=== PATIENT | female | born 1960 | race Caucasian/White ===

== ENCOUNTER → 2020-10-02 08:29 | Outpatient (CLI) | payer OTHER, SELFPAY ==
--- NOTE | ~2020-10-02 | US_ITS ---
EXAMINATION: US thyroid DATE: 10/02/2020 08:51 INDICATION: Neck mass. TECHNIQUE: Multiple ultrasound images of the thyroid were obtained. COMPARISON: Thyroid ultrasound 11/27/2019 FINDINGS: The right thyroid lobe measures 6.6 x 4.6 x 2.9 cm. The left thyroid lobe measures 6.5 x 3.6 x 3.2 c m. The thyroid is diffusely hypoechoic with heterogeneous signal intensity. Vascularity is normal. N ormal lymph nodes are seen in the neck bilaterally. IMPRESSION: 1. Heterogeneous thyroid, likely chronic lymphocytic (Benito) thyroiditis. Reviewed, dictated and finalized at location A. [facility]
== END ==
PROVIDERS: PCP Internal Medicine; Visit Provider Internal Medicine
DX: R22.1 Localized swelling, mass and lump, neck (principal)
CPT/HCPCS: 76536

== ENCOUNTER → 2021-01-05 17:58 | Outpatient (CLI) | payer OTHER, SELFPAY ==
--- NOTE | ~2021-01-05 | XR_ITS ---
EXAMINATION: XR shoulder LT min 2V INDICATION: Left shoulder pain TECHNIQUE: Four views of the left shoulder are submitted. COMPARISON: None FINDINGS: Normal alignment. No fracture. Glenohumeral and acromioclavicular joint spaces are normal. Soft tissues are unremarkable. IMPRESSION: 1. No acute osseous abnormality. Reviewed, dictated and finalized at location A. [facility] [employer]
== END ==
PROVIDERS: Visit Provider Internal Medicine
DX: M25.512 Pain in left shoulder (principal)
CPT/HCPCS: 73030

== ENCOUNTER → 2021-05-28 00:15 | Outpatient (CLI) | payer OTHER, SELFPAY ==
[2021-05-28 16:43] LABS: SARS-CoV-2 RNA PCR Negative
== END ==
PROVIDERS: PCP Internal Medicine; Visit Provider Internal Medicine Gastroenterology
DX: Z01.812 Encounter for preprocedural laboratory examination (principal); Z20.822 Contact with and (suspected) exposure to COVID-19
CPT/HCPCS: C9803; U0003; U0005

== ENCOUNTER 2021-06-01 01:07 | Day surgery (SDC) | payer OTHER, SELFPAY ==
[2021-05-19 14:19] VITALS: BMI 23.8
--- NOTE | 2021-05-31 09:31 | WPDANESEPPF ---
Anes - Initial Pre Proc Eval Procedure: Operation Date: 06/01/21 09:30 Proposed Procedures p Esophagogastroduodenoscopy & Screening Colonoscopy - Fernando Martin MD Date/Time: 05/31/21 09:31 Surgeon: Fernando Martin MD Pre Op Diagnosis: family hx of colon ca, neoplasm, celiac disease Patient Data Age: 61 Gender: F Height: 1.57 m Weight: 59 kg Allergies Allergy/AdvReac Type Severity Reaction Status Date / Time Sulfa (Sulfonamide Allergy Unknown Unknown Verified 06/01/21 08:33 Antibiotics) Home Medications Medication Instructions Recorded Confirmed Type fluticasone propionate 50 2 spray NASAL DAILY 11/19/19 06/01/21 History mcg/actuation nasal spray,suspension venlafaxine 75 mg capsule,extended 75 mg PO DAILY #90 cap 07/09/20 06/01/21 Rx release 24 hr amitriptyline 25 mg tablet 25 mg PO DAILY #90 tablet 10/07/20 06/01/21 Rx atorvastatin 20 mg tablet 20 mg PO DAILY #90 tablet 01/10/21 06/01/21 Rx levothyroxine 175 mcg tablet 175 mcg PO DAILY #90 tablet 05/13/21 06/01/21 Rx calcium carbonate-vitamin D2 1 tablet PO DAILY 05/19/21 06/01/21 History [Calcium + Vitamin D] cetirizine 10 mg PO DAILY 05/19/21 06/01/21 History glucos sul [id number]-C-Mn 1 cap PO DAILY 05/19/21 06/01/21 History [Glucosamine Chondroitin] magnesium 500 mg PO DAILY 05/19/21 06/01/21 History multivitamin 1 cap PO DAILY 05/19/21 06/01/21 History potassium 99 mg PO DAILY 05/19/21 06/01/21 History kdtzfok-zsoy-puiza-oreg-capryl 1 cap PO DAILY 05/19/21 06/01/21 History vitamin E 400 unit PO DAILY 05/19/21 06/01/21 History zinc 100 mg PO DAILY 05/19/21 06/01/21 History Patient hx anesthesia problems: none Family hx anesthesia problems: none PMFSH Past Medical History Medical History (Updated 05/31/21 @ 09:32 by Leo Lyman DO) Anxiety Celiac disease Depression Benito's thyroiditis Hyperlipidemia Hypothyroidism, unspecified Mass of neck Surgical History Surgical History (Updated 05/31/21 @ 09:32 by Leo Lyman DO) History of History of tubal ligation Family History Family History Mother Hypertension Family history of malignant neoplasm of breast in first degree relative Thyroid disease Sibling Hypertension Alcoholism Depression Thyroid disease Father Family history of congestive heart failure Alcoholism Depression Heart disease Other Diabetes mellitus Depression Thyroid disease Grandparent Cancer Diabetes mellitus Depression Thyroid disease Grandparent Depression Family history of cardiovascular disease Other Family history of arthritis Family history of malignant neoplasm Family history of osteoporosis Family history of thyroid disease Malignant neoplasm of prostate Social History Social History Smoking packs per day: 1 Smoking cigarettes per day: 20.0 Years smoked: 25 Smoking pack-years: 25.00 Smoking status: Current every day smoker Tobacco type: cigarettes Second hand tobacco smoke exposure: Yes Alcohol intake: former Alcohol use details: rarely Substance use: never Living arrangements: with family Spiritual care concerns: No Anes - Eval Final PreProcedure Day of Procedure 05/31/21 09:31 Patient weight: normal Heart: regular rate and rhythm Lungs: clear to auscultation and normal air movement Airway: Mallampati scale class II Neurological: alert and oriented Last oral intake: >/= 8 hours ASA classification: III Emergent: no Anesthetic plan: proceed Anesthesia type and monitoring: general GIVS and standard monitoring Informed Consent: The patient's anesthetic plan and its attendant risks and benefits were discussed with the patient/family/POA. Questions were solicited and answers provided to the satisfaction of the patient/family/POA.
[2021-06-01 08:16] VITALS: BP 160/74; PULSE 81; RESP 18; TEMP 36.1; O2SAT 99; BMI 23.7
[2021-06-01] MEDS: LACTATED RINGERS 1,000 ML 150 ML IV CONT (08:58)
--- NOTE | 2021-06-01 09:01 | PM.HPGS ---
History of Present Illness History of Present Illness Consent: Risks, benefits, and alternatives have been discussed and questions answered. Patient agrees to proceed with procedure. Chief complaint: family hx of colon ca, neoplasm, celiac disease Narrative: Kristi Florentino is a 61 year old female with a family history of colon cancer. Her brother she also has had severe diarrhea for the past year to. Serology for celiac disease was positive Review of Systems Review of Systems: All systems reviewed & are unremarkable except as noted in HPI and below PMFSH Past Medical History Medical History Anxiety Celiac disease Depression Benito's thyroiditis Hyperlipidemia Hypothyroidism, unspecified Mass of neck Surgical History Surgical History History of History of tubal ligation Family History Family History Mother Hypertension Family history of malignant neoplasm of breast in first degree relative Thyroid disease Sibling Hypertension Alcoholism Depression Thyroid disease Father Family history of congestive heart failure Alcoholism Depression Heart disease Other Diabetes mellitus Depression Thyroid disease Grandparent Cancer Diabetes mellitus Depression Thyroid disease Grandparent Depression Family history of cardiovascular disease Other Family history of arthritis Family history of malignant neoplasm Family history of osteoporosis Family history of thyroid disease Malignant neoplasm of prostate Social History Social History Smoking packs per day: 1 Smoking cigarettes per day: 20.0 Years smoked: 25 Smoking pack-years: 25.00 Smoking status: Current every day smoker Tobacco type: cigarettes Second hand tobacco smoke exposure: Yes Alcohol intake: former Alcohol use details: rarely Substance use: never Living arrangements: with family Spiritual care concerns: No Meds Home Medications and Allergies Home Medications Medication Instructions Recorded Confirmed Type fluticasone propionate 50 2 spray NASAL DAILY 11/19/19 06/01/21 History mcg/actuation nasal spray,suspension venlafaxine 75 mg capsule,extended 75 mg PO DAILY #90 cap 07/09/20 06/01/21 Rx release 24 hr amitriptyline 25 mg tablet 25 mg PO DAILY #90 tablet 10/07/20 06/01/21 Rx atorvastatin 20 mg tablet 20 mg PO DAILY #90 tablet 01/10/21 06/01/21 Rx levothyroxine 175 mcg tablet 175 mcg PO DAILY #90 tablet 05/13/21 06/01/21 Rx calcium carbonate-vitamin D2 1 tablet PO DAILY 05/19/21 06/01/21 History [Calcium + Vitamin D] cetirizine 10 mg PO DAILY 05/19/21 06/01/21 History glucos sul [id number]-iwj-yyglb-C-Mn 1 cap PO DAILY 05/19/21 06/01/21 History [Glucosamine Chondroitin] magnesium 500 mg PO DAILY 05/19/21 06/01/21 History multivitamin 1 cap PO DAILY 05/19/21 06/01/21 History potassium 99 mg PO DAILY 05/19/21 06/01/21 History dblnnrj-mcjj-zmukq-oreg-capryl 1 cap PO DAILY 05/19/21 06/01/21 History vitamin E 400 unit PO DAILY 05/19/21 06/01/21 History zinc 100 mg PO DAILY 05/19/21 06/01/21 History Allergies Allergy/AdvReac Type Severity Reaction Status Date / Time Sulfa (Sulfonamide Allergy Unknown Unknown Verified 06/01/21 08:33 Antibiotics) Vital Signs Vital Signs - 24 hr 06/01/21 08:16 Temperature 36.1 C L Pulse Rate 81 Respiratory Rate 18 Blood Pressure 160/74 H Pulse Oximetry 99 Exam Const: General: alert Orientation/consciousness: patient oriented x3 Resp: Auscultation: clear to auscultation bilaterally Cardio: Rhythm: regular rhythm GI: GI Palp: Yes Soft to palpation and No Tenderness to palpation present (GI) Neuro: General: patient oriented x3 Assessment and Plan Assessment and plan (1) Chronic diarrhea:
[2021-06-01 10:02] VITALS: BP 99/52; PULSE 78; RESP 23; O2SAT 99
[2021-06-01 10:12] VITALS: BP 114/58; PULSE 68; RESP 19; O2SAT 99
[2021-06-01 10:22] VITALS: BP 140/73; PULSE 74; RESP 17; O2SAT 99
== END 2021-06-01 10:41 | disposition home or self-care (01) ==
PROVIDERS: PCP Internal Medicine; Visit Provider Internal Medicine Gastroenterology
PROC: 0DJ08ZZ Inspection of Upper Intestinal Tract, Via Natural or Artificial Opening Endoscopic (ICD-10-PCS; CPT 43235; principal; 2021-06-01 09:30)
DX: Z12.11 Encounter for screening for malignant neoplasm of colon (principal); K52.9 Noninfective gastroenteritis and colitis, unspecified; K29.80 Duodenitis without bleeding; Z80.0 Family history of malignant neoplasm of digestive organs; E06.3 Autoimmune thyroiditis; E78.5 Hyperlipidemia, unspecified; F41.8 Other specified anxiety disorders; F17.210 Nicotine dependence, cigarettes, uncomplicated
CPT/HCPCS: 45380; 43239; 87081; 88305; C9803; J2001; J2704; J7120; U0003; U0005

== ENCOUNTER 2022-07-18 08:47 | Outpatient (CLI) | payer OTHER, SELFPAY ==
[2022-07-18 19:16] LABS: Alanine Aminotransferase 15 U/L (6-35); Albumin Level 4.4 g/dL (3.5-5.1); Alkaline Phosphatase 102 U/L (38-126); Anion Gap 12 mmol/L (8-16); Aspartate Amino Transferase 60 U/L (14-36); Bilirubin,Total 0.6 mg/dL (0.2-1.3); Blood Urea Nitrogen 9 mg/dL (7-17); Calcium 8.8 mg/dL (8.4-10.2); Carbon Dioxide 27 mmol/L (22-30); Chloride 103 mmol/L (98-107); Cholesterol 165 mg/dL (0-200); Estimated Glomerular Filt Rate > 60; Glucose 99 mg/dL (65-110); HDL Direct 30 mg/dL; Potassium 4.7 mmol/L (3.4-5.0); Sodium 142 mmol/L (137-145); Triglycerides 217 mg/dL (<150)
[2022-07-18 19:27] LABS: LDL Cholesterol Direct 84 mg/dL
[2022-07-18 20:03] LABS: Thyroid Stimulating Hormone Reflex < 0.015 uIU/mL (0.465-4.68)
[2022-07-18 21:27] LABS: Total Triiodothyronine (T3) 1.27 NG/ML (0.97-1.69)
== END 2022-07-18 08:48 | disposition home or self-care (01) ==
LOC: ANHGOSHLAB 08:50
PROVIDERS: PCP Family Medicine; Visit Provider Family Medicine
DX: Z13.220 Encounter for screening for lipoid disorders (principal); E03.9 Hypothyroidism, unspecified; I10 Essential (primary) hypertension
CPT/HCPCS: 36415; 80053; 80061; 84439; 84443; 84480

== ENCOUNTER 2022-09-18 09:08 | Outpatient (CLI) | payer OTHER, SELFPAY ==
[2022-09-18 19:38] LABS: Free T4 Free Thyroxine 1.43 ng/mL (0.78-2.19)
[2022-09-20 09:42] LABS: Thyroid Stimulating Hormone 0.431 uIU/mL (0.465-4.680)
== END 2022-09-18 09:09 | disposition home or self-care (01) ==
LOC: ANHGOSHLAB 09:13
PROVIDERS: PCP Family Medicine; Visit Provider Family Medicine
DX: E06.3 Autoimmune thyroiditis (principal)
CPT/HCPCS: 36415; 84439; 84443

== ENCOUNTER 2022-12-06 14:22 | Outpatient (CLI) | payer OTHER, SELFPAY | END 2022-12-06 14:23 | disposition home or self-care (01) | LOC: ANHGOSHLAB 14:24 | PROVIDERS: PCP Family Medicine; Visit Provider Family Medicine | DX: Z13.29 Encounter for screening for other suspected endocrine disorder (principal) | CPT/HCPCS: 36415; 84443 ==

== ENCOUNTER 2023-10-09 08:22 | Outpatient (CLI) | payer OTHER, SELFPAY ==
[2023-10-09 19:47] LABS: Alanine Aminotransferase 15 U/L (6-35); Albumin Level 4.4 g/dL (3.5-5.1); Alkaline Phosphatase 106 U/L (38-126); Anion Gap 8 mmol/L (8-16); Aspartate Amino Transferase 39 U/L (14-36); Bilirubin,Total 0.8 mg/dL (0.2-1.3); Blood Urea Nitrogen 11 mg/dL (7-17); Calcium 9.4 mg/dL (8.4-10.2); Carbon Dioxide 29 mmol/L (22-30); Chloride 101 mmol/L (98-107); Cholesterol 194 mg/dL (0-200); Estimated Glomerular Filt Rate > 60; Glucose 101 mg/dL (65-110); HDL Direct 25 mg/dL; Sodium 138 mmol/L (137-145); Triglycerides 255 mg/dL (<150)
[2023-10-09 19:58] LABS: LDL Cholesterol Direct 116 mg/dL
[2023-10-09 20:39] LABS: Basophils Absolute Auto 0.1 K/mm3 (0.0-0.1); Basophils Percent Auto 0.8 % (0.2-1.2); Eosinophils Absolute Auto 0.1 K/mm3 (0-0.3); Eosinophils Percent Auto 1.6 % (0-4.4); Hematocrit 43.8 % (37.0-47.0); Immature Granulocyte Absolute 0.03 K/mm3 (0.00-0.031); Immature Granulocyte Percent A 0.3 % (0-0.5); Lymphocytes Absolute Auto 4.14 K/mm3 (0.9-3.2); Lymphocytes Percent Auto 46.3 % (18.3-44.2); Mean Corpuscular Hemoglobin 30.4 pg (26-34); Mean Platelet Volume 10.3 fl (7.4-10.4); Monocytes Absolute Auto 0.7 K/mm3 (0.1-0.6); Monocytes Percent Auto 7.4 % (2.6-8.5); Neutrophils Absolute Auto 3.9 K/mm3 (1.3-6.7); Neutrophils Percent Auto 43.6 % (45.5-73.1); Platelet Count Result 326 k/mm3 (150-375); Red Blood Count 4.61 M/mm3 (4.2-5.4); Red Cell Distribution Width 13.2 % (11.5-14.5); White Blood Count 8.9 K/mm3 (4.5-10.0)
== END 2023-10-09 08:23 | disposition home or self-care (01) ==
LOC: ANHGOSHLAB 08:23
PROVIDERS: PCP Family Medicine; Visit Provider Family Medicine
DX: E03.9 Hypothyroidism, unspecified (principal); Z13.228 Encounter for screening for other metabolic disorders; R53.83 Other fatigue; Z13.220 Encounter for screening for lipoid disorders
CPT/HCPCS: 36415; 80053; 80061; 84443; 85025

== ENCOUNTER 2024-08-18 07:53 | Outpatient (CLI) | payer OTHER, SELFPAY ==
[2024-08-18 14:44] LABS: Alanine Aminotransferase 12 U/L (6-35); Albumin Level 4.1 g/dL (3.5-5.1); Alkaline Phosphatase 82 U/L (38-126); Anion Gap 6 mmol/L (4-12); Aspartate Amino Transferase 59 U/L (14-36); Bilirubin,Total 0.6 mg/dL (0.2-1.3); Blood Urea Nitrogen 10 mg/dL (7-17); Carbon Dioxide 30 mmol/L (22-30); Chloride 102 mmol/L (98-107); Cholesterol 154 mg/dL (0-200); Estimated Glomerular Filt Rate > 60; Glucose 88 mg/dL (65-110); HDL Direct 34 mg/dL; Potassium 4.1 mmol/L (3.4-5.0); Sodium 138 mmol/L (137-145); Triglycerides 300 mg/dL (<150)
[2024-08-18 14:55] LABS: LDL Cholesterol Direct 67 mg/dL
[2024-08-18 15:13] LABS: Free T4 Free Thyroxine 1.27 ng/mL (0.78-2.19)
== END 2024-08-18 07:54 | disposition home or self-care (01) ==
LOC: ANHGOSHLAB 07:54
PROVIDERS: PCP Family Medicine; Visit Provider Family Medicine
DX: Z13.220 Encounter for screening for lipoid disorders (principal); Z13.228 Encounter for screening for other metabolic disorders; E03.9 Hypothyroidism, unspecified
CPT/HCPCS: 36415; 80053; 80061; 84439; 84443